=== PATIENT | female | born 1985 | race Hispanic/Latino ===

== ENCOUNTER 2021-05-29 13:02 | Outpatient (CLI) | payer BC ==
[2021-05-29 15:14] LABS: Hemoglobin 12.9 g/dL (12.0-15.5); Mean Corpuscular HGB CONC 34.2 g/dL (32.0-36.0); Mean Corpuscular Hemoglobin 29.7 pg (27.0-33.0); Mean Corpuscular Volume 86.9 fl (81.6-98.3); Mean Platelet Volume 11.1 fl (7.4-10.4); Platelet Count 279 10x3/uL (150-450); RBC Distribution Width 15.1 % (11.5-14.5); Red Blood Cell (RBC) Count 4.34 10x6/uL (3.90-5.03); White Blood Cell (WBC) Count 12.7 10x3/uL (3.5-10.5)
[2021-05-29 16:01] LABS: HIV (1/2) Antibody/Antigen Non-Reactive (NonReactive); HIV 1/2 INDEX 0.12 S/CO (<1.00); Syphilis Antibody Nonreactive (Nonreactive); Syphilis Antibody Index 0.09 S/CO (<1.00 Non-Reactive)
[2021-05-30 16:10] LABS: SARS-CoV-2 PCR by NAA Not Detected (NotDetected)
== END 2021-05-29 13:03 | disposition home or self-care (01) ==
LOC: CSHLAB 13:02
PROVIDERS: ATTEND Family Medicine
DX: Z01.812 Encounter for preprocedural laboratory examination (principal); Z20.822 Contact with and (suspected) exposure to COVID-19
CPT/HCPCS: 85027; 86780; 86900; 86901; 87389; U0003; U0005

== ENCOUNTER 2021-06-01 09:43 | Inpatient (IN) | payer BC, MEDICAID ==
[2021-06-01] MEDS ORDERED: hydrALAZINE 20 MG/ML VIAL SLOW IVP PRN ×2 (09:52→18:35)
[2021-06-01] MEDS ORDERED: Promethazine HCl 25 MG/ML VIAL IM PRN ×3 (09:52→18:35)
[2021-06-01] MEDS ORDERED: Ondansetron PF 4 MG/2 ML Vial IVP PRN ×3 (09:52→18:35)
[2021-06-01] MEDS ORDERED: ceFAZolin 2 GM/Dextrose 50 ML 2 GM in Premix Bag 1 BAG IVPB SCH (09:52)
[2021-06-01] MEDS ORDERED: Bicitra 30 ML UDCUP PO PRN (09:52)
[2021-06-01] MEDS ORDERED: Famotidine/PF 20 mg/2ml Vial SLOW IVP PRN (09:52)
[2021-06-01 09:53] VITALS: BMI 32.0
[2021-06-01] MEDS: Lactated Ringer's 1,000 ML IV SCH ×3 (10:33→20:26)
[2021-06-01] MEDS ORDERED: Fentanyl 100 MCG/2 ML VIAL ONE (11:00)
[2021-06-01] MEDS ORDERED: Oxytocin 10 UNITS/ML VIAL ONE (11:00)
[2021-06-01] MEDS ORDERED: Ondansetron PF 4 MG/2 ML Vial ONE (11:00)
[2021-06-01] MEDS ORDERED: Morphine PF 10 MG/10 ML VIAL ONE (11:00)
[2021-06-01] MEDS ORDERED: Phenylephrine 10 MG/ML VIAL ONE (11:00)
[2021-06-01] MEDS ORDERED: Ketorolac Tromethamine 30 MG/ML VIAL ONE (11:00)
[2021-06-01] MEDS ORDERED: Ondansetron HCl/PF 4 MG/2 ML Vial IVP PRN (11:30)
[2021-06-01] MEDS ORDERED: Communication Order-Pharmacy FS SCH (11:30)
[2021-06-01] MEDS ORDERED: Fentanyl 100 MCG/2 ML VIAL SLOW IVP PRN (11:30)
[2021-06-01] MEDS ORDERED: Magnesium Sulfate 20 gm/500 ml 20 GM/500 ML BAG ONE ×2 (11:30→20:11)
[2021-06-01] MEDS ORDERED: Moisturizing Cream (Eucerin) 113 GM JAR TOP PRN (11:30)
[2021-06-01] MEDS ORDERED: Ketorolac Tromethamine 30 MG/ML VIAL IVP PRN (11:30)
[2021-06-01] MEDS ORDERED: Naloxone HCl 0.4 mg/ml Vial IV PRN (11:30)
[2021-06-01] MEDS ORDERED: HYDROmorphone 2 MG/ML VIAL SLOW IVP PRN (11:30)
[2021-06-01] MEDS ORDERED: diphenhydrAMINE 50 MG/ML VIAL IVP PRN (11:30)
[2021-06-01] MEDS ORDERED: Promethazine HCl 25 MG SUPP PR PRN (11:30)
[2021-06-01] MEDS ORDERED: Naloxone HCl 0.4 mg/ml Vial IVP PRN ×2 (11:30)
[2021-06-01] MEDS ORDERED: Meperidine HCl/PF 25 MG/ML VIAL SLOW IVP PRN (11:30)
[2021-06-01] MEDS ORDERED: Ketorolac Tromethamine 30 MG/ML VIAL IVP SCH (11:30)
[2021-06-01] MEDS ORDERED: Magnesium Sulfate 20 gm/500 ml 4 GM/100 ML BAG IVPB ONE (15:00)
[2021-06-01] MEDS ORDERED: Calcium Gluc 4.6 MEQ/10 ML (100 MG/ML) IV PRN (15:00)
[2021-06-01 17:31] LABS: Hep B Surf Ag Non-Reactive S/CO (NonReactive)
[2021-06-01 17:42] LABS: HBSAg Index 0.18 S/CO (0-0.99)
[2021-06-01] MEDS ORDERED: Lanolin Ointment 7 GM TUBE TOP PRN (18:35)
[2021-06-01] MEDS ORDERED: NS w/ Oxytocin 30 units 500 ML IV SCH (18:35)
[2021-06-01] MEDS ORDERED: Boostrix 0.5 ML (Tdap) VIAL IM ONE (18:35)
[2021-06-01] MEDS ORDERED: HYDROcodone/Acetaminophen 5/325 mg Tablet PO PRN (18:35)
[2021-06-01] MEDS ORDERED: Bisacodyl 10 MG SUPP PR PRN (18:35)
[2021-06-01] MEDS ORDERED: diphenhydrAMINE 25 MG CAP PO PRN (18:35)
[2021-06-01] MEDS: Ketorolac Tromethamine 30 MG/ML VIAL IVP SCH (19:12)
[2021-06-01] MEDS: Ferrous Sulfate 325 MG TAB PO SCH (23:34)
[2021-06-01] MEDS: Docusate 100 MG CAP PO SCH (23:34)
[2021-06-02] MEDS: Ketorolac Tromethamine 30 MG/ML VIAL IVP SCH ×2 (02:09→07:39)
[2021-06-02 04:58] LABS: Hemoglobin 9.3 g/dL (12.0-15.5); Mean Corpuscular HGB CONC 33.9 g/dL (32.0-36.0); Mean Corpuscular Hemoglobin 29.6 pg (27.0-33.0); Mean Corpuscular Volume 87.3 fl (81.6-98.3); Mean Platelet Volume 9.8 fl (7.4-10.4); Platelet Count 207 10x3/uL (150-450); RBC Distribution Width 15.3 % (11.5-14.5); Red Blood Cell (RBC) Count 3.14 10x6/uL (3.90-5.03); White Blood Cell (WBC) Count 14.4 10x3/uL (3.5-10.5)
[2021-06-02] MEDS ORDERED: Magnesium Sulfate 20 gm/500 ml 20 GM/500 ML BAG IVPB SCH (06:45)
[2021-06-02] MEDS ORDERED: Ibuprofen 800 MG TAB PO SCH (14:00)
[2021-06-02] MEDS: Docusate 100 MG CAP PO SCH ×2 (17:32→20:05)
[2021-06-02] MEDS: Ferrous Sulfate 325 MG TAB PO SCH ×2 (17:33→20:05)
[2021-06-02] MEDS: Prenatal Vitamin 1 TAB PO SCH (17:33)
[2021-06-02] MEDS: Simethicone Chewable 80 MG TAB PO PRN (20:05)
[2021-06-03] MEDS: Ibuprofen 800 MG TAB PO SCH ×3 (01:05→17:33)
[2021-06-03] MEDS: Prenatal Vitamin 1 TAB PO SCH (08:36)
[2021-06-03] MEDS: Ferrous Sulfate 325 MG TAB PO SCH ×2 (08:36→21:44)
[2021-06-03] MEDS: Docusate 100 MG CAP PO SCH ×2 (08:36→21:44)
[2021-06-03] MEDS: Simethicone Chewable 80 MG TAB PO PRN ×3 (08:36→21:46)
[2021-06-03] MEDS: HYDROcodone/Acetaminophen 5/325 mg Tablet PO PRN (08:42)
[2021-06-03 22:48] LABS: Bilirubin Neg (Negative); Blood, Urine 250 (Negative); Clarity Slightly Cloudy (Clear); Glucose, Urine (Dipstick) Normal (Negative); Ketone, Urine Negative (Negative); Leukocyte 100 (Negative); Nitrite Positive (Negative); Protein, Urine (Dipstick) Negative (Neg-Trace); Urobilinogen Normal mg/dL (Less than 2); pH, Urine 6.5 (5.0-9.0)
[2021-06-03 23:01] LABS: RBC/HPF 0-3 HPF (0-3)
[2021-06-03 23:02] LABS: Bacteria/HPF 4+ HPF (None Seen); Squamous Epithelial 0-3 HPF (0-3)
[2021-06-04] MEDS ORDERED: cefTRIAXone\\ROCEPHIN 2 GM in Sodium Chloride 0.9% 100 ML IVPB SCH (01:00)
[2021-06-04] MEDS: Ibuprofen 800 MG TAB PO SCH ×3 (01:21→17:55)
[2021-06-04] MEDS: Simethicone Chewable 80 MG TAB PO PRN ×2 (01:28→14:20)
[2021-06-04] MEDS: Prenatal Vitamin 1 TAB PO SCH (08:32)
[2021-06-04] MEDS: Ferrous Sulfate 325 MG TAB PO SCH ×2 (08:32→22:06)
[2021-06-04] MEDS: Docusate 100 MG CAP PO SCH ×2 (08:32→22:06)
[2021-06-04 17:45] VITALS: BP 148/98; TEMP 98.3
[2021-06-04] MEDS: HYDROcodone/Acetaminophen 5/325 mg Tablet PO PRN (22:11)
== END 2021-06-04 23:57 | disposition home or self-care (01) | DRG 787 ==
LOC: CSHLD 09:43 → CSHPP 06-02 15:20
PROVIDERS: ADMIT Family Medicine; ATTEND Family Medicine
PROC: 10D00Z1 Extraction of Products of Conception, Low, Open Approach (ICD-10-PCS; principal; 2021-06-02)
DX: O34.211 Maternal care for low transverse scar from previous cesarean delivery (principal); O86.20 Urinary tract infection following delivery, unspecified; Z3A.39 39 weeks gestation of pregnancy; Z37.0 Single live birth; O14.14 Severe pre-eclampsia complicating childbirth; O75.89 Other specified complications of labor and delivery; K21.9 Gastro-esophageal reflux disease without esophagitis
CPT/HCPCS: 36415; 51702; 81001; 85027; 86780; 86850; 86900; 86901; 87077; 87086; 87186; 87340; 87389; J0360; J0690; J0696; J1885; J2274; J2310; J2370; J2405; J2550; J2590; J3010; J3475; J3490; J7120; S0028; U0003; U0005